=== PATIENT | female | born 1960 | race Caucasian/White ===

== ENCOUNTER 2021-07-08 11:19 | Day surgery (SDC) | payer MEDICARE ==
[2021-07-08 11:35] VITALS: BP 135/61
[2021-07-08] MEDS ORDERED: LEVO112T52 PO (11:35)
[2021-07-08] MEDS ORDERED: iohexol 300 MG/1 ML 50ml polymer ONE (11:35)
[2021-07-08] MEDS ORDERED: HYDR-3965 PO (11:35)
[2021-07-08] MEDS ORDERED: heparin sodium, porcine/PF 100unit/ml 5ML syringe ONE (11:35)
== END 2021-07-08 12:07 | disposition home or self-care (01) ==
LOC: SSTAY O 11:19
PROVIDERS: ATTEND Radiology Vascular & Interventional Radiology
DX: T82.598A Other mechanical complication of other cardiac and vascular devices and implants, initial encounter (principal); C53.9 Malignant neoplasm of cervix uteri, unspecified; Y83.8 Other surgical procedures as the cause of abnormal reaction of the patient, or of later complication, without mention of misadventure at the time of the procedure; Y92.89 Other specified places as the place of occurrence of the external cause
CPT/HCPCS: 36598; J1642; Q9967